=== PATIENT | female | born 1990 | race Two or more races ===

== ENCOUNTER 2022-11-25 15:29 | Emergency (ER) | payer OTHER ==
[~2022-11-25] VITALS: Ht 154.9 cm; Wt 60.0 kg
[2022-11-25 16:11] VITALS: BP 121/84; PULSE 77; RESP 20; TEMP 98.4; O2SAT 99
[2022-11-25] MEDS ORDERED: BACITRACIN ZINC OINT UDPKT TOP ONE (16:15)
== END 2022-11-25 16:19 | disposition home or self-care (01) ==
LOC: ER 15:36
DX: S00.81XA Abrasion of other part of head, initial encounter (principal); Z88.0 Allergy status to penicillin; W22.8XXA Striking against or struck by other objects, initial encounter; Y93.89 Activity, other specified; Y92.89 Other specified places as the place of occurrence of the external cause; Y99.8 Other external cause status
CPT/HCPCS: 99281